=== PATIENT | female | born 1945 | race Caucasian/White ===

== ENCOUNTER 2023-05-22 08:22 | Day surgery (SDC) | payer OTHER, MEDICARE ==
[2023-05-18 12:55] VITALS: BMI 15.9
[2023-05-22 10:36] VITALS: TEMP 96.8
[2023-05-23 10:35] VITALS: BP 112/62; PULSE 56; RESP 18
== END 2023-05-22 11:15 | disposition home or self-care (01) ==
LOC: FASU-ENDO 08:22
PROVIDERS: ATTEND Internal Medicine Gastroenterology
PROC: 0DJD8ZZ Inspection of Lower Intestinal Tract, Via Natural or Artificial Opening Endoscopic (ICD-10-PCS; principal; 2023-05-22 09:51)
DX: Z12.11 Encounter for screening for malignant neoplasm of colon (principal); Z83.71 Family history of colonic polyps